=== PATIENT | female | born 1950 | race Caucasian/White ===

== ENCOUNTER 2023-04-13 17:22 | Inpatient (IN) ==
[2023-04-13] MEDS ORDERED: ONDANSETRON INJ 2 MG/ML 2 ML VIAL IV STA (17:33)
[2023-04-13] MEDS ORDERED: KETOROLAC TROMETHAMINE 15 MG/ML VIAL IV STA (17:33)
[2023-04-13] MEDS ORDERED: SODIUM CHLORIDE 0.9% 1000ML 1,000 ML IV ONE (17:33)
[2023-04-13 17:59] LABS: Basophils # (auto) 0.02 K/uL (0-0.2); Basophils % (auto) 0.3 %; Eosinophils # (auto) 0.12 K/uL (0-0.50); Eosinophils % (auto) 1.7 %; Hematocrit (blood only) 33.5 % (37.0-47.0); Hemoglobin 10.6 g/dl (12.0-16.0); Immature Granulocytes # (auto) 0.03 K/uL (0.01-0.20); Immature Granulocytes % (auto) 0.4 %; Lymphocytes # (auto) 1.46 K/uL (1.2-3.4); Lymphocytes % (auto) 20.4 %; Mean Corpuscular Hemoglobin 25.4 pg (25.0-34.0); Mean Corpuscular Hgb Conc 31.6 g/dL (32.0-36.0); Mean Corpuscular Volume 80.1 fL (80.0-100.0); Mean Platelet Volume 10.3 fL (9.4-12.4); Monocytes # (auto) 0.54 K/uL (0.11-0.59); Monocytes % (auto) 7.6 %; Neutrophils # (auto) 4.97 K/uL (1.40-6.50); Neutrophils % (auto) 69.6 %; Platelet Count 294 K/uL (130-400); RDW Coefficient of Variation 16.1 % (11.5-14.5); RDW Standard Deviation 46.7 fL (36.4-46.3); Red Blood Count 4.18 M/uL (4.20-5.40); White Blood Count 7.14 K/ul (4.8-10.8)
[2023-04-13] MEDS ORDERED: MoRPHine SULFATE 4 MG/ML 1 ML CARP\\VIAL IV STA (18:02)
--- NOTE | 2023-04-13 18:07 | Emergency Department Note ---
History of Present Illness General Chief Complaint: Abdominal Pain Stated Complaint: ABDOMINAL PAIN, POSSIBLE KIDNEY STONE Time Seen by Provider: 04/13/23 17:33 Source: patient and family (Family member is translating at bedside) History of Present Illness Provider Complaint: abdominal pain and flank pain Onset (ago): 1 day(s) Pain Consistency: constant Location: R flank Migration to: RLQ Severity: severe Maximum Pain Intensity: 10 Current Pain Intensity: 9 Quality: + stabbing and + sharp Relieved By: + nothing Exacerbated By: + nothing Context: + history of similar episodes (Feels like previous kidney stones); no foreign travel, no possible food poisoning, no sick contacts, no recent antibiotic use, no recent surgery/procedure or no recent injury Associated Symptoms: + nausea and + vomiting; no fever, no chills, no constipation, no dysuria, no hematemesis, no hematochezia, no melena, no hematuria, no chest pain and no breathing difficulty Related Data Patient Confirmed : No Home Medications Medication Instructions Recorded Confirmed Type ibuprofen 200 mg tablet 200 mg PO Q6H PRN Pain 04/13/23 04/13/23 History magnesium oxide 250 mg PO DAILY 04/13/23 04/13/23 History msuxvypejrzv-fvhxfuot-aohcrw 1 tab PO DAILY 04/13/23 04/13/23 History tablet (Multivitamin 50 Plus tablet) Allergies Allergy/AdvReac Type Severity Reaction Status Date / Time No Known Allergies Allergy Unverified 04/13/23 18:18 Past Med/Surg History Medical History Kidney stones Social History Smoking Status: Never smoker Second Hand Exposure: No; Do You Dip or Chew Tobacco: No; Hx Alcohol Use: No Hx Substance Use: No Preferred Language: Tajik 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 Beliefs That Will Affect Care: None Current Living Situation: Family Current Living Situation Comment: with daughter Other Information That Helps Us Care for You: No Feels Safe at Home: Yes Safety Concerns: Feels Safe At This Time Assistive Devices: Glasses Physical Exam Vital Signs: Vital Signs - 24 hr 04/13/23 17:25 04/13/23 18:00 04/13/23 18:00 Temperature 36.8 C Temperature Source Temporal Artery Sc an Pulse Rate 99 H Pulse Rate [Apical ] 115 H Respiratory Rate 18 20 Respiratory Effort / Characteristics Non-Labored Respiratory Depth Normal Blood Pressure 171/78 H Blood Pressure [Ri ght Arm] 169/99 H Blood Pressure Reshma n 109 Blood Pressure Reshma n [Right Arm] 122 Pulse Oximetry 99 99 99 Oxygen Delivery Me thod Room Air Room Air Room Air Sepsis Recent Feve r Within 48 Hours No Sepsis New/Unexpla ined Change in Men denia Status No Sepsis Action Take n by Nursing No Action Required 04/13/23 18:08 Temperature Temperature Source Pulse Rate 119 H Pulse Rate [Apical ] Respiratory Rate Respiratory Effort / Characteristics Respiratory Depth Blood Pressure Blood Pressure [Ri ght Arm] Blood Pressure Reshma n Blood Pressure Reshma n [Right Arm] Pulse Oximetry Oxygen Delivery Me thod Sepsis Recent Feve r Within 48 Hours Sepsis New/Unexpla ined Change in Men denia Status Sepsis Action Take n by Nursing Physical Exam: Physical Exam HENT: Exam performed. -Head: Normocephalic and atraumatic. -Right Ear: External ear normal. No mastoid erythema -Left Ear: External ear normal. No mastoid erythema EYES: Conjunctivae and EOM are normal. Right eye exhibits no discharge. Left eye exhibits no discharge. No scleral icterus. NECK: Normal range of motion. Neck supple. No JVD present. No tracheal deviation and normal range of motion present. CV: Normal rate, regular rhythm, normal heart sounds and intact distal pulses. There is no peripheral edema. Palpable radial pulses bue. PULM/CHEST: Effort normal and breath sounds normal. No respiratory distress. No stridor. She has no wheezes. She has no rales. ABD: The abdomen is soft. Bowel sounds are normal. She has no distension. There is no tenderness. There is no rebound, no guarding. MUSC/SKEL: Normal range of motion. There is no peripheral edema, tenderness or deformity. LYMPH: No cervical adenopathy. NEURO: She is alert and oriented to person, place, and time. She has normal strength. No cranial nerve deficit or sensory deficit. Coordination and gait normal. GCS eye subscore is 4. GCS verbal subscore is 5. GCS motor subscore is 6. Cerebellar tests wnl. SKIN: Skin is warm and dry. She is not diaphoretic. PSYCH: She has a normal mood and affect. Behavior is normal. Judgment and thought content normal. Course Course 1733: The patient was evaluated in room C12. A complete history and physical exam was performed Cardiac monitoring: An order was placed for continuous cardiac monitoring. The monitor shows a rate of 100 with sinus rhythm interpreted by 1917: Vital signs stable. Labs within normal limits. Imaging shows a 7 mm stone with hydronephrosis. Patient still having good deal of pain and does not feel comfortable being discharged home. Patient will be admitted to the [facility] team for evaluation by urology and pain control. Dr. Manzo's team notified. Administered Medications Lactated Ringer's (Lr) 1,000 mls @ 50 mls/hr IV .Q20H ONE Stop: 04/14/23 16:46 Last Admin: 04/13/23 21:13 Dose: 50 mls/hr Documented By: JUAN Morphine Sulfate (Morphine Sulfate 2 Mg/Ml Carp) 2 mg IV Q3H PRN PRN Reason: Pain Stop: 04/27/23 20:44 Last Admin: 04/13/23 23:04 Dose: 2 mg Documented By: YENI Discontinued Medications Sodium Chloride (Nss 1000ml) 1,000 mls @ 999 mls/hr IV .Q1H1M ONE Stop: 04/13/23 18:33 Last Infusion: 04/13/23 22:34 Dose: 0 mls/hr Documented By: Admin: 04/13/23 17:44 Dose: 999 mls/hr Documented By: CABRERA Pantoprazole Sodium 80 mg/ (Dextrose) 120 mls @ 480 mls/hr IV ONE STA Stop: 04/13/23 20:49 Last Admin: 04/13/23 22:35 Dose: Not Given Documented By: YENI Pantoprazole Sodium 80 mg/ (Dextrose) 120 mls @ 400 mls/hr IV NOW ONE Stop: 04/13/23 20:52 Last Admin: 04/13/23 22:35 Dose: Not Given Documented By: YENI Pantoprazole Sodium 80 mg/ (Dextrose) 120 mls @ 480 mls/hr IV ONE STA Stop: 04/13/23 20:55 Last Infusion: 04/13/23 22:34 Dose: 0 mls/hr Documented By: Admin: 04/13/23 21:13 Dose: 480 mls/hr Documented By: JUAN Ketorolac Tromethamine (Ketorolac Tromethamine 15 Mg/Ml Vial) 15 mg IV NOW STA Stop: 04/13/23 17:34 Last Admin: 04/13/23 17:43 Dose: 15 mg Documented By: CABRERA Metoprolol Tartrate (Metoprolol Tartrate 1 Mg/Ml Vial) 2.5 mg IV NOW STA Stop: 04/13/23 19:29 Last Admin: 04/13/23 22:33 Dose: Not Given Documented By: TNK Morphine Sulfate (Morphine Sulfate 4 Mg/Ml 1 Ml Carp\Vial) 4 mg IV NOW STA Stop: 04/13/23 18:03 Last Admin: 04/13/23 18:04 Dose: 4 mg Documented By: CABRERA Ondansetron HCl (Ondansetron Inj 2 Mg/Ml 2 Ml Vial) 4 mg IV NOW STA Stop: 04/13/23 17:34 Last Admin: 04/13/23 17:44 Dose: 4 mg Documented By: CABRERA Medical Decision Making Laboratory Data Attestation: I reviewed the patient's lab results. 04/13/23 17:45 04/13/23 17:45 Lab Results 04/13/23 04/13/23 04/13/23 Range/Units 17:45 17:45 18:31 WBC 7.14 (4.8-10.8) K/ul RBC 4.18 L (4.20-5.40) M/uL Hgb 10.6 L (12.0-16.0) g/dl Hct 33.5 L (37.0-47.0) % MCV 80.1 (80.0-100.0) fL MCH 25.4 (25.0-34.0) pg MCHC 31.6 L (32.0-36.0) g/dL RDW Std Deviation 46.7 H (36.4-46.3) fL RDW Coeff of Brenna 16.1 H (11.5-14.5) % Plt Count 294 (130-400) K/uL MPV 10.3 (9.4-12.4) fL Immature Gran % (Auto) 0.4 % Neut % (Auto) 69.6 % Lymph % (Auto) 20.4 % [place] % (Auto) 7.6 % Eos % (Auto) 1.7 % Baso % (Auto) 0.3 % Neut # (Auto) 4.97 (1.40-6.50) K/uL Lymph # (Auto) 1.46 (1.2-3.4) K/uL [place] # (Auto) 0.54 (0.11-0.59) K/uL Eos # (Auto) 0.12 (0-0.50) K/uL Baso # (Auto) 0.02 (0-0.2) K/uL Immature Gran # (Auto) 0.03 (0.01-0.20) K/uL Sodium 139 (136-145) mmol/L Potassium 3.9 (3.5-5.1) mmol/L Chloride 106 (98-107) mmol/L Carbon Dioxide 27 (21-32) mmol/L Anion Gap 6 (3-11) BUN 29 H (6-23) mg/dl Creatinine 0.81 (0.6-1.2) mg/dl Est Cr Clr Drug Dosing Not Reportable Est GFR ( Amer) 83.5 ml/min Est GFR (Non-Af Amer) 72.1 ml/min BUN/Creatinine Ratio 35.8 H (10-20) Glucose 112 H (70-99(Fasting)) mg/dl Calcium 8.9 (8.6-10.3) mg/dl Magnesium 2.2 (1.7-2.4) mg/dl Total Bilirubin 0.2 (0.2-1.0) mg/dl Direct Bilirubin 0.0 (0-0.2) mg/dl AST 22 (13-39) U/L ALT 17 (7-52) U/L Alkaline Phosphatase 83 (34-104) U/L Total Protein 6.7 (6.0-8.3) gm/dl Albumin 4.1 (3.4-5.0) gm/dl Lipase 60 (11-82) U/L Urine Color Yellow Urine Appearance Clear (Clear) Urine pH 8.0 H (4.5-7.5) Ur Specific Jbphh 1.011 (1.000-1.030) Urine Protein Negative (Negative) Urine Glucose (UA) Negative (Negative) Urine Ketones Negative (Negative) Urine Blood 2+ H (Negative) Urine Nitrite Negative (Negative) Urine Bilirubin Negative (Negative) Urine Urobilinogen Negative (Negative) Ur Leukocyte Esterase Trace H (Negative) Urine WBC (Auto) 1-5 (0-5) /hpf Urine RBC (Auto) 10-30 H (0-4) /hpf U Hyaline Cast (Auto) 0 (0-5) /lpf U Epithel Cells (Auto) 10-20 H (0-5) /lpf Urine Bacteria (Auto) Negative (Negative) SARS-CoV-2, RNA, NAAT (NEGATIVE) 04/13/23 Range/Units 19:34 WBC (4.8-10.8) K/ul RBC (4.20-5.40) M/uL Hgb (12.0-16.0) g/dl Hct (37.0-47.0) % MCV (80.0-100.0) fL MCH (25.0-34.0) pg MCHC (32.0-36.0) g/dL RDW Std Deviation (36.4-46.3) fL RDW Coeff of Brenna (11.5-14.5) % Plt Count (130-400) K/uL MPV (9.4-12.4) fL Immature Gran % (Auto) % Neut % (Auto) % Lymph % (Auto) % [place] % (Auto) % Eos % (Auto) % Baso % (Auto) % Neut # (Auto) (1.40-6.50) K/uL Lymph # (Auto) (1.2-3.4) K/uL [place] # (Auto) (0.11-0.59) K/uL Eos # (Auto) (0-0.50) K/uL Baso # (Auto) (0-0.2) K/uL Immature Gran # (Auto) (0.01-0.20) K/uL Sodium (136-145) mmol/L Potassium (3.5-5.1) mmol/L Chloride (98-107) mmol/L Carbon Dioxide (21-32) mmol/L Anion Gap (3-11) BUN (6-23) mg/dl Creatinine (0.6-1.2) mg/dl Est Cr Clr Drug Dosing Est GFR ( Amer) ml/min Est GFR (Non-Af Amer) ml/min BUN/Creatinine Ratio (10-20) Glucose (70-99(Fasting)) mg/dl Calcium (8.6-10.3) mg/dl Magnesium (1.7-2.4) mg/dl Total Bilirubin (0.2-1.0) mg/dl Direct Bilirubin (0-0.2) mg/dl AST (13-39) U/L ALT (7-52) U/L Alkaline Phosphatase (34-104) U/L Total Protein (6.0-8.3) gm/dl Albumin (3.4-5.0) gm/dl Lipase (11-82) U/L Urine Color Urine Appearance (Clear) Urine pH (4.5-7.5) Ur Specific Jbphh (1.000-1.030) Urine Protein (Negative) Urine Glucose (UA) (Negative) Urine Ketones (Negative) Urine Blood (Negative) Urine Nitrite (Negative) Urine Bilirubin (Negative) Urine Urobilinogen (Negative) Ur Leukocyte Esterase (Negative) Urine WBC (Auto) (0-5) /hpf Urine RBC (Auto) (0-4) /hpf U Hyaline Cast (Auto) (0-5) /lpf U Epithel Cells (Auto) (0-5) /lpf Urine Bacteria (Auto) (Negative) SARS-CoV-2, RNA, NAAT NEGATIVE (NEGATIVE) Imaging Data Radiologist's Impression: Abdomen/Pelvis CT 04/13/23 17:42 CT abd pelvis wo con CLINICAL HISTORY: R flank RLQ pain hx kidney stones TECHNIQUE: Helical axial images of the abdomen and pelvis were obtained. Automated dose lowering techniques and/or adjustment according to patient size were utilized for this exam. This exam was performed without intravenous con trast. CT DOSE: 749.08 mGy.cm COMPARISON: None available at the time of this dictation. FINDINGS: Lower chest: Bibasilar atelectasis versus scarring is seen. Liver: Unremarkable. No focal lesions are seen. Gallbladder and biliary tree: Patient is status post cholecystectomy. No intra- or extrahepatic biliary ductal dilation. Pancreas: Unremarkable, no focal lesions. Spleen: Unremarkable. Adrenals: Unremarkable. Kidneys and ureters: Right hydronephrosis and hydroureter is seen. A 7 mm right UVJ stone is seen. Bladder: Unremarkable. Reproductive organs: Unremarkable. Bowel: Diverticulosis is seen without evidence of diverticulitis. Lymph nodes Retroperitoneal: Unremarkable. Pelvic: Unremarkable. Mesenteric: Unremarkable. Peritoneum: Normal. Vessels: Atherosclerotic calcifications are seen. Phleboliths are seen in the pelvis. Abdominal wall: Unremarkable. Bones: Degenerative changes in the visualized spine. IMPRESSION: Right hydronephrosis and hydroureter are seen with a obstructive 7 mm right UVJ stone. ACT 112: Negative or not required by law. Electronically signed by: Antonio Anglin M.D. 04/13/2023 6:28 PM Chest X-Ray 04/13/23 19:24 XR chest 1V portable CLINICAL HISTORY: htn, tachy TECHNIQUE: Single frontal radiograph of the chest was obtained. Comparison: None available at the time of this dictation. FINDINGS: No lines and tubes are seen. The cardiomediastinal silhouette is normal. The lungs are clear. No evidence of pleural effusion or pneumothorax. IMPRESSION: No acute chest disease. ACT 112: Negative or not required by law. Electronically signed by: Antonio Anglin M.D. 04/13/2023 8:39 PM [facility] Narrative 1733: The patient was evaluated in room C12. A complete history and physical exam was performed Cardiac monitoring: An order was placed for continuous cardiac monitoring. The monitor shows a rate of 100 with sinus rhythm interpreted by me 1917: Vital signs stable. Labs within normal limits. Imaging shows a 7 mm stone with hydronephrosis. Patient still having good deal of pain and does not feel comfortable being discharged home. Patient will be admitted to the [facility] team for evaluation by urology and pain control. Dr. Manzo's team notified. Impression & Plan Hydronephrosis with urinary obstruction due to renal calculus Discharge Plan Visit Data Chief Complaint: Abdominal Pain Stated Complaint: ABDOMINAL PAIN, POSSIBLE KIDNEY STONE ED Provider: Stiven Collins Discharge Problem: Hydronephrosis with urinary obstruction due to renal calculus Patient Disposition: Admitted As Inpatient Discharge Instructions Interventions: ED Discharge Assessment Last Done: 04/13/23 21:55
[2023-04-13 18:15] LABS: Alanine Aminotransferase 17 U/L (7-52); Albumin Level 4.1 gm/dl (3.4-5.0); Alkaline Phosphatase 83 U/L (34-104); Anion Gap 6 (3-11); Aspartate Aminotransferase 22 U/L (13-39); BUN Creatinine Ratio 35.8 (10-20); Bilirubin,Total 0.2 mg/dl (0.2-1.0); Blood Urea Nitrogen 29 mg/dl (6-23); Calcium 8.9 mg/dl (8.6-10.3); Carbon Dioxide 27 mmol/L (21-32); Chloride 106 mmol/L (98-107); Est GFR (African American) 83.5 ml/min; Est GFR (Non-African American) 72.1 ml/min; Glucose 112 mg/dl (70-99(Fasting)); Lipase 60 U/L (11-82); Potassium 3.9 mmol/L (3.5-5.1); Sodium 139 mmol/L (136-145); Total Protein 6.7 gm/dl (6.0-8.3)
--- NOTE | 2023-04-13 18:29 | CT Scan Report ---
CT abd pelvis wo con CLINICAL HISTORY: R flank RLQ pain hx kidney stones TECHNIQUE: Helical axial images of the abdomen and pelvis were obtained. Automated dose lowering tech niques and/or adjustment according to patient size were utilized for this exam. This exam was perfor med without intravenous contrast. CT DOSE: 749.08 mGy.cm COMPARISON: None available at the time of this dictation. FINDINGS: Lower chest: Bibasilar atelectasis versus scarring is seen. Liver: Unremarkable. No focal lesions are seen. Gallbladder and biliary tree: Patient is status post cholecystectomy. No intra- or extrahepatic bilia ry ductal dilation. Pancreas: Unremarkable, no focal lesions. Spleen: Unremarkable. Adrenals: Unremarkable. Kidneys and ureters: Right hydronephrosis and hydroureter is seen. A 7 mm right UVJ stone is seen. Bladder: Unremarkable. Reproductive organs: Unremarkable. Bowel: Diverticulosis is seen without evidence of diverticulitis. Lymph nodes Retroperitoneal: Unremarkable. Pelvic: Unremarkable. Mesenteric: Unremarkable. Peritoneum: Normal. Vessels: Atherosclerotic calcifications are seen. Phleboliths are seen in the pelvis. Abdominal wall: Unremarkable. Bones: Degenerative changes in the visualized spine. IMPRESSION: Right hydronephrosis and hydroureter are seen with a obstructive 7 mm right UVJ stone. ACT 112: Negative or not required by law. Electronically signed by: Antonio Anglin M.D. 04/13/2023 6:28 PM
[2023-04-13 18:49] LABS: Appearance Urine Clear (Clear); Bacteria Urine Automated Negative (Negative); Bilirubin Urine Negative (Negative); Blood Urine 2+ (Negative); Cast Urine Automated 0 /lpf (0-5); Color Urine Yellow; Glucose Urine UA Negative (Negative); Ketones Urine Negative (Negative); Leukocyte Esterase Urine Trace (Negative); Nitrite Urine Negative (Negative); Protein Urine Negative (Negative); Specific Gravity Urine 1.011 (1.000-1.030); Urobilinogen Urine Negative (Negative)
[2023-04-13] MEDS ORDERED: METOPROLOL TARTRATE 1 MG/ML VIAL IV STA (19:28)
[2023-04-13 19:44] LABS: Magnesium 2.2 mg/dl (1.7-2.4)
[2023-04-13] MEDS ORDERED: PANTOprazole 80 MG in DEXTROSE 5% 100 ML IV STA ×2 (20:35→20:41)
[2023-04-13] MEDS ORDERED: PANTOprazole 80 MG in DEXTROSE 5% 100 ML IV ONE (20:35)
--- NOTE | 2023-04-13 20:38 | History & Physical Report ---
Date of Service April 13, 2023 Assessment & Plan (1) Hydronephrosis with urinary obstruction due to renal calculus: Plan: No sepsis for now Situational hypertension secondary to above Possible chronic BP elevation given LVH on EKG New onset anemia secondary to UGIB Hyperglycemia rule out DM Medical telemetry given BP elevation initiate lisinopril Analgesia Strain urine Urology consult Re: Obstructive uropathy Anemia work-up, transfuse PRBC if hemoglobin less than 7 and or for symptomatic anemia IV PPI GI consult Re: UGIB N.p.o. until patient seen by specialties in anticipation of procedure. DVT prophylaxis. SCDs Re: GI bleed Full code Patient daughter requesting updates providers. Miss Geni Oro, contact #[phone]. Text document was generated using [employer] voice recognition software. It may contain grammatical or spelling errors. Kindly contact undersigned for clarification of any documentation item in question. History of Present Illness Chief Complaint: Kidney stone pain Primary Care Provider: NO PCP History obtained from patient, family, and records. Limited history from patient secondary to language barrier. Medical history significant for urolithiasis. Patient is a andreafski of [facility] who just relocated to [place] as a permanent resident to stay with her daughter 2 months ago. Move delayed by COVID-19 pandemic. 1 day history of right-sided back pain with nausea, emesis symptoms reminiscent of kidney stone attack. No hematuria, no fever, no chills. Patient denies chest pain, SOB. Patient also gives history of intermittent dark stools for the last few weeks. Denies inordinate OTC NSAID intake. Denies weight loss. Patient brought to the ER by daughter. Medical History as above Surgical History : Nasal septum surgery, urologic procedures, cholecystectomy, appendectomy Family History : Kidney stones, stomach cancer Personal/Social history : Non-smoker, no EtOH intake, lives with daughter Allergies Allergy/AdvReac Type Severity Reaction Status Date / Time No Known Allergies Allergy Unverified 04/13/23 18:18 Home Medications Medication Instructions Recorded Confirmed Type ibuprofen 200 mg tablet 200 mg PO Q6H PRN Pain 04/13/23 04/13/23 History magnesium oxide 250 mg PO DAILY 04/13/23 04/13/23 History dsnhcdhhdrbm-jjvdcomt-[id number] 1 tab PO DAILY 04/13/23 04/13/23 History tablet (Multivitamin 50 Plus tablet) Past Med/Surg History Medical History Kidney stones Social History Smoking Status: Never smoker Second Hand Exposure: No; Do You Dip or Chew Tobacco: No; Hx Alcohol Use: No Hx Substance Use: No Preferred Language: Czech Communication Ability: emirati Communication Tools: Other Advertising Traffic Manager Required: Yes Beliefs That Will Affect Care: None Current Living Situation: Family Current Living Situation Comment: with daughter Other Information That Helps Us Care for You: No Feels Safe at Home: Yes Safety Concerns: Feels Safe At This Time Assistive Devices: Glasses Review of Systems Review of Systems: Could not be reliably obtained due to language barrier Physical Exam Physical Exam: GENERAL: Comfortable, pleasant, no respiratory distress SKIN: Pallor, warm HEENT: Pale palpebral conjunctivae, no ptosis, dry buccal mucosa NECK : Supple, no tenderness CHEST : CTA, no tenderness HEART : RRR, no obvious murmurs ABDOMEN: Some distention, nontender RECTAL : Intact sphincter, dark brown stool (FOBT positive) EXTREMITIES : No LE swelling/tenderness, no other conspicuous deformities noted NEUROLOGIC : Coherent, no facial asymmetry, no other gross focality Results & Data Results & Data Vital Signs (Past 12 Hours) Vital Signs Temp Pulse Pulse Resp BP BP Pulse Ox 04/13/23 18:08 119 H 04/13/23 18:00 115 H 20 169/99 H 99 04/13/23 18:00 99 04/13/23 17:25 36.8 C 99 H 18 171/78 H 99 O2 Del Method 04/13/23 18:08 04/13/23 18:00 Room Air 04/13/23 18:00 Room Air 04/13/23 17:25 Room Air Laboratory Results Laboratory Results WBC 7.14 K/ul (4.8-10.8) 04/13/23 17:45 RBC 4.18 M/uL (4.20-5.40) L 04/13/23 17:45 Hgb 10.6 g/dl (12.0-16.0) L 04/13/23 17:45 Hct 33.5 % (37.0-47.0) L 04/13/23 17:45 MCV 80.1 fL (80.0-100.0) 04/13/23 17:45 MCH 25.4 pg (25.0-34.0) 04/13/23 17:45 MCHC 31.6 g/dL (32.0-36.0) L 04/13/23 17:45 RDW Std Deviation 46.7 fL (36.4-46.3) H 04/13/23 17:45 RDW Coeff of Brenna 16.1 % (11.5-14.5) H 04/13/23 17:45 Plt Count 294 K/uL (130-400) 04/13/23 17:45 MPV 10.3 fL (9.4-12.4) 04/13/23 17:45 Immature Gran % (Auto) 0.4 % 04/13/23 17:45 Neut % (Auto) 69.6 % 04/13/23 17:45 Lymph % (Auto) 20.4 % 04/13/23 17:45 [place] % (Auto) 7.6 % 04/13/23 17:45 Eos % (Auto) 1.7 % 04/13/23 17:45 Baso % (Auto) 0.3 % 04/13/23 17:45 Neut # (Auto) 4.97 K/uL (1.40-6.50) 04/13/23 17:45 Lymph # (Auto) 1.46 K/uL (1.2-3.4) 04/13/23 17:45 [place] # (Auto) 0.54 K/uL (0.11-0.59) 04/13/23 17:45 Eos # (Auto) 0.12 K/uL (0-0.50) 04/13/23 17:45 Baso # (Auto) 0.02 K/uL (0-0.2) 04/13/23 17:45 Immature Gran # (Auto) 0.03 K/uL (0.01-0.20) 04/13/23 17:45 Sodium 139 mmol/L (136-145) 04/13/23 17:45 Potassium 3.9 mmol/L (3.5-5.1) 04/13/23 17:45 Chloride 106 mmol/L (98-107) 04/13/23 17:45 Carbon Dioxide 27 mmol/L (21-32) 04/13/23 17:45 Anion Gap 6 (3-11) 04/13/23 17:45 BUN 29 mg/dl (6-23) H 04/13/23 17:45 Creatinine 0.81 mg/dl (0.6-1.2) 04/13/23 17:45 Est Cr Clr Drug Dosing Not Reportable 04/13/23 17:45 Est GFR ( Amer) 83.5 ml/min 04/13/23 17:45 Est GFR (Non-Af Amer) 72.1 ml/min 04/13/23 17:45 BUN/Creatinine Ratio 35.8 (10-20) H 04/13/23 17:45 Glucose 112 mg/dl (70-99(Fasting)) H 04/13/23 17:45 Calcium 8.9 mg/dl (8.6-10.3) 04/13/23 17:45 Magnesium 2.2 mg/dl (1.7-2.4) 04/13/23 17:45 Total Bilirubin 0.2 mg/dl (0.2-1.0) 04/13/23 17:45 Direct Bilirubin 0.0 mg/dl (0-0.2) 04/13/23 17:45 AST 22 U/L (13-39) 04/13/23 17:45 ALT 17 U/L (7-52) 04/13/23 17:45 Alkaline Phosphatase 83 U/L (34-104) 04/13/23 17:45 Total Protein 6.7 gm/dl (6.0-8.3) 04/13/23 17:45 Albumin 4.1 gm/dl (3.4-5.0) 04/13/23 17:45 Lipase 60 U/L (11-82) 04/13/23 17:45 Urine Color Yellow 04/13/23 18:31 Urine Appearance Clear (Clear) 04/13/23 18:31 Urine pH 8.0 (4.5-7.5) H 04/13/23 18:31 Ur Specific [place] 1.011 (1.000-1.030) 04/13/23 18:31 Urine Protein Negative (Negative) 04/13/23 18:31 Urine Glucose (UA) Negative (Negative) 04/13/23 18:31 Urine Ketones Negative (Negative) 04/13/23 18:31 Urine Blood 2+ (Negative) H 04/13/23 18:31 Urine Nitrite Negative (Negative) 04/13/23 18:31 Urine Bilirubin Negative (Negative) 04/13/23 18:31 Urine Urobilinogen Negative (Negative) 04/13/23 18:31 Ur Leukocyte Esterase Trace (Negative) H 04/13/23 18:31 Urine WBC (Auto) 1-5 /hpf (0-5) 04/13/23 18:31 Urine RBC (Auto) 10-30 /hpf (0-4) H 04/13/23 18:31 U Hyaline Cast (Auto) 0 /lpf (0-5) 04/13/23 18:31 U Epithel Cells (Auto) 10-20 /lpf (0-5) H 04/13/23 18:31 Urine Bacteria (Auto) Negative (Negative) 04/13/23 18:31 SARS-CoV-2, RNA, NAAT NEGATIVE (NEGATIVE) 04/13/23 19:34 Impressions Abdomen/Pelvis CT 04/13/23 17:42 CT abd pelvis wo con CLINICAL HISTORY: R flank RLQ pain hx kidney stones TECHNIQUE: Helical axial images of the abdomen and pelvis were obtained. Automated dose lowering techniques and/or adjustment according to patient size were utilized for this exam. This exam was performed without intravenous contrast. CT DOSE: 749.08 mGy.cm COMPARISON: None available at the time of this dictation. FINDINGS: Lower chest: Bibasilar atelectasis versus scarring is seen. Liver: Unremarkable. No focal lesions are seen. Gallbladder and biliary tree: Patient is status post cholecystectomy. No intra- or extrahepatic biliary ductal dilation. Pancreas: Unremarkable, no focal lesions. Spleen: Unremarkable. Adrenals: Unremarkable. Kidneys and ureters: Right hydronephrosis and hydroureter is seen. A 7 mm right UVJ stone is seen. Bladder: Unremarkable. Reproductive organs: Unremarkable. Bowel: Diverticulosis is seen without evidence of diverticulitis. Lymph nodes Retroperitoneal: Unremarkable. Pelvic: Unremarkable. Mesenteric: Unremarkable. Peritoneum: Normal. Vessels: Atherosclerotic calcifications are seen. Phleboliths are seen in the pelvis. Abdominal wall: Unremarkable. Bones: Degenerative changes in the visualized spine. IMPRESSION: Right hydronephrosis and hydroureter are seen with a obstructive 7 mm right UVJ stone. ACT 112: Negative or not required by law. Electronically signed by: Antonio Anglin M.D. 04/13/2023 6:28 PM Diagnostic Findings EKG as per my interpretation : Rate 90, NSR, LAD, LAFB, LVH, T wave abnormalities inferior leads
--- NOTE | 2023-04-13 20:40 | XRay Report ---
XR chest 1V portable CLINICAL HISTORY: htn, tachy TECHNIQUE: Single frontal radiograph of the chest was obtained. Comparison: None available at the time of this dictation. FINDINGS: No lines and tubes are seen. The cardiomediastinal silhouette is normal. The lungs are clear. No evid ence of pleural effusion or pneumothorax. IMPRESSION: No acute chest disease. ACT 112: Negative or not required by law. Electronically signed by: Antonio Anglin M.D. 04/13/2023 8:39 PM
[2023-04-13] MEDS ORDERED: ACETAMINOPHEN 325 MG TAB PO PRN (20:45)
[2023-04-13] MEDS ORDERED: traMADol HCL 50 MG TABLET PO PRN (20:45)
[2023-04-13] MEDS ORDERED: PROMETHAZINE HCL 6.25 MG in SODIUM CHLORIDE 0.9% 50 ML IV PRN (20:45)
[2023-04-13] MEDS ORDERED: LACTATED RINGER'S 1,000 ML IV ONE (20:47)
[2023-04-13] MEDS ORDERED: PANTOprazole 40 MG in DEXTROSE 5% 100 ML IV SCH (21:00)
[2023-04-13 21:58] LABS: Hematocrit (blood only) 32.9 % (37.0-47.0); Hemoglobin 10.4 g/dl (12.0-16.0); Reticulocyte % 1.7 % (0.5-2.0); Reticulocytes # 0.07 10^6/uL (0.02-0.10)
[2023-04-13 22:31] LABS: Ferritin 5.1 ng/ml (8-388)
[2023-04-13] MEDS: lisinopril 2.5 MG TAB PO SCH (22:33)
[2023-04-13 22:38] LABS: Vitamin B12 529 pg/ml (180-914)
[2023-04-13] MEDS: MoRPHine SULFATE 2 MG/ML CARP IV PRN (23:04)
[2023-04-14] MEDS: lisinopril 2.5 MG TAB PO SCH ×2 (00:08→21:01)
[2023-04-14 07:16] LABS: Basophils # (auto) 0.02 K/uL (0-0.2); Basophils % (auto) 0.3 %; Eosinophils # (auto) 0.02 K/uL (0-0.50); Eosinophils % (auto) 0.3 %; Hematocrit (blood only) 32.3 % (37.0-47.0); Hemoglobin 10.1 g/dl (12.0-16.0); Immature Granulocytes # (auto) 0.02 K/uL (0.01-0.20); Immature Granulocytes % (auto) 0.3 %; Lymphocytes # (auto) 1.35 K/uL (1.2-3.4); Lymphocytes % (auto) 18.3 %; Mean Corpuscular Hemoglobin 25.1 pg (25.0-34.0); Mean Corpuscular Hgb Conc 31.3 g/dL (32.0-36.0); Mean Corpuscular Volume 80.1 fL (80.0-100.0); Mean Platelet Volume 10.4 fL (9.4-12.4); Monocytes # (auto) 0.61 K/uL (0.11-0.59); Monocytes % (auto) 8.3 %; Neutrophils # (auto) 5.34 K/uL (1.40-6.50); Neutrophils % (auto) 72.5 %; Platelet Count 276 K/uL (130-400); RDW Coefficient of Variation 16.2 % (11.5-14.5); RDW Standard Deviation 47.3 fL (36.4-46.3); Red Blood Count 4.03 M/uL (4.20-5.40); White Blood Count 7.36 K/ul (4.8-10.8)
[2023-04-14 07:29] LABS: BUN Creatinine Ratio 28.2 (10-20); Calcium 8.7 mg/dl (8.6-10.3); Creatinine Clr Calc Pharmacy 61.6 ml/min; Est GFR (African American) 87.4 ml/min; Est GFR (Non-African American) 75.4 ml/min; Potassium 4.1 mmol/L (3.5-5.1)
[2023-04-14] MEDS: CEROVITE ADV FORMULA TAB PO SCH (08:38)
[2023-04-14] MEDS: PANTOprazole 40 MG in SYRINGE 0 ML IV SCH ×2 (08:41→21:02)
--- NOTE | 2023-04-14 11:02 | Urology Consultation ---
Date of Consultation April 14, 2023 Assessment & Plan (1) Hydronephrosis with urinary obstruction due to renal calculus: (2) Kidney stones: Plan We reviewed the ureteral stone seen on her CT scan. In the absence of infection or renal deterioration, which 1 option would be for her to try to pass the stone spontaneously. We discussed that this would include using medications for pain and nausea control. We also discussed the possibility of intervention with cystoscopy, ureteral stent placement and possible laser lithotripsy. We reviewed risks and benefits of the procedure including risk of bleeding, infection, injury to the urinary tract, need for additional procedures, need for ureteral stent. She expressed understanding and after consideration of the options would like to proceed with intervention. We will plan for cystoscopy, right retrograde pyelogram, right ureteral stent placement, possible right ureteroscopy with laser lithotripsy. History of Present Illness Reason for Consultation: Right ureteral stone Attending Physician: Dio Adler MD History of Present Illness This is a 72-year-old female with history of nephrolithiasis. She presented the emergency department with acute onset of right-sided flank pain associated with nausea. She is not having any fevers or chills. CT scan was performed in the emergency department. I Independently reviewed these images. They demonstrated a 7 mm stone at the right ureterovesical junction with associated hydronephrosis.Lab work was notable for normal WBC (7.36). Creatinine was 0.78. Urinalysis was not suggestive of infection, demonstrating no bacteria, trace leukocyte esterase and negative nitrites. Allergies Allergy/AdvReac Type Severity Reaction Status Date / Time No Known Allergies Allergy Unverified 04/13/23 18:18 Home Medications Medication Instructions Recorded Confirmed Type ibuprofen 200 mg tablet 200 mg PO Q6H PRN Pain 04/13/23 04/13/23 History magnesium oxide 250 mg PO DAILY 04/13/23 04/13/23 History jxglbzjsfpde-odhloyjt-rvpznf 1 tab PO DAILY 04/13/23 04/13/23 History tablet (Multivitamin 50 Plus tablet) Patient History Medical History Kidney stones Social History Smoking Status: Never smoker Second Hand Exposure: No; Do You Dip or Chew Tobacco: No; Hx Alcohol Use: No Hx Substance Use: No Preferred Language: Greek Communication Ability: upper sorbian Communication Tools: Other Dispatcher Refinery Required: Yes Beliefs That Will Affect Care: None Current Living Situation: Family Current Living Situation Comment: with daughter Other Information That Helps Us Care for You: No Feels Safe at Home: Yes Safety Concerns: Feels Safe At This Time Assistive Devices: Glasses Review of Systems Review of Systems: 12 point review of systems negative except for otherwise indicated. Physical Exam Constitutional: well developed and well nourished; no acute distress Eyes: + anicteric sclerae; pupils not irregular Respiratory: normal respiratory effort; no respiratory distress, does not use accessory muscles and no cough Cardiovascular: well perfused Gastrointestinal (Abdomen): Inspection/Auscultation: abdomen normal to inspection; abdomen not distended Musculoskeletal: Extremities: extremities normal to inspection Skin: normal turgor; no rashes and no lesions Neurologic: moves all extremities and awake Psychiatric: Orientation: alert and oriented x 3 Results & Data Vital Signs (Past 12 Hours) Vital Signs Temp Pulse Pulse Resp BP Pulse Ox O2 Del Method 04/14/23 07:59 74 04/14/23 07:02 36.8 C 73 18 121/68 97 Room Air 04/14/23 03:50 37 C 78 18 123/60 96 Room Air 04/14/23 00:46 Room Air PG Care Time/CCT Total # of Minutes Spent Total Time Spent with Patient: Total time spent is greater than 50% in coordination of care (as documented) at patient's floor/unit and/or counseling patient: Coding Level of Care Code 63318 IN/OBS CONSULT LVL 4,60M Diagnoses Hydronephrosis with urinary obstruction due to renal calculus N13.2 Kidney stones N20.0
[2023-04-14] MEDS ORDERED: ceFAZolin 2000MG 2,000 MG/15 ML SYR IV ONE (11:15)
[2023-04-14] MEDS ORDERED: fentaNYL citrate PF 100 MCG/2 ML VIAL ONE (11:20)
[2023-04-14] MEDS ORDERED: PROPOFOL IV EMULSION 10 MG/ML 20 ML VIAL IV ONE (11:21)
[2023-04-14] MEDS ORDERED: MIDAZOLAM HCL 1 MG/ML 2ML VIAL ONE (11:21)
[2023-04-14] MEDS ORDERED: LIDOCAINE 2% 2 ML VIAL/AMP(20MG/ML) INFIL ONE ×2 (11:22)
--- NOTE | 2023-04-14 11:44 | Anesthesiology Consultation ---
Date of Service April 14, 2023 Assessment & Plan Chart Review Chart Review: Acceptable Risk for Surgery and Patient NOT seen in Pre Admission Testing Consults Requested none ASA ASA3 Proposed Anesthesia Anesthesia Type: General History Surgery Operation Date: 04/14/23 12:00 Proposed Procedures p Cystoscopy, Ureteroscopy, Laser Lithotripsy, Right Ureteral Stent Placement(Ri t) - Zachery Reyes MD Height/Weight Height: 5 ft 4 in Weight: 69.7 kg Allergies Allergy/AdvReac Type Severity Reaction Status Date / Time No Known Allergies Allergy Unverified 04/13/23 18:18 Medications Home Medications Medication Instructions Recorded Confirmed Last Taken ibuprofen 200 mg tablet 200 mg PO Q6H PRN Pain 04/13/23 04/13/23 04/13/23 magnesium oxide 250 mg PO DAILY 04/13/23 04/13/23 04/12/23 [id number] 1 tab PO DAILY 04/13/23 04/13/23 04/12/23 tablet (Multivitamin 50 Plus tablet) Active Medications Generic Name Dose Route Start Last Admin Trade Name Freq PRN Reason Stop Dose Admin Pantoprazole Sodium 40 mg/ 10 mls @ 5 mls/min 04/14/23 09:00 04/14/23 08:41 Syringe IV 05/14/23 08:59 5 mls/min BID RENNY Administration Lisinopril 2.5 mg 04/13/23 21:00 04/14/23 00:08 Lisinopril 2.5 Mg Tab PO 05/13/23 20:59 Not Given HS RENNY Morphine Sulfate 2 mg 04/13/23 20:45 04/13/23 23:04 Morphine Sulfate 2 Mg/Ml Carp IV 04/27/23 20:44 2 mg Q3H PRN Administration Pain Multivitamins/Minerals 1 tab 04/14/23 09:00 04/14/23 08:38 Cerovite Adv Formula Tab PO 05/14/23 08:59 1 tab DAILY RENNY Administration Past Medical History Medical History Kidney stones HTN ASCVD AO right hydronephrosis right kidney stone Exercise / Class Metabolic Activity II 4-5 Yardwork/Stairs/Walk up hill Past Anesthesia History No Hx of Anesthesia Complications and No Family Hx of Anesthesia Complications History of PONV No Hx of PONV and No Hx of Motion Sickness Social History Smoking Status: Never smoker Do You Dip or Chew Tobacco: No Hx Alcohol Use: No Hx Substance Use: No substance use type: does not use Physical Exam Vital Signs Last Vital Signs Temp 36.9 C 04/14/23 10:59 Pulse 79 04/14/23 10:59 Resp 18 04/14/23 10:59 BP 158/71 H 04/14/23 10:59 Pulse Ox 98 04/14/23 10:59 O2 Del Method Room Air 04/14/23 10:59 Testing Laboratory Results 04/14/23 06:13 04/14/23 06:13 Urine Color Yellow 04/13/23 18:31 Urine Appearance Clear (Clear) 04/13/23 18:31 Urine pH 8.0 (4.5-7.5) H 04/13/23 18:31 Ur Specific [place] 1.011 (1.000-1.030) 04/13/23 18:31 Urine Protein Negative (Negative) 04/13/23 18:31 Urine Glucose (UA) Negative (Negative) 04/13/23 18:31 Urine Ketones Negative (Negative) 04/13/23 18:31 Urine Nitrite Negative (Negative) 04/13/23 18:31 Ur Leukocyte Esterase Trace (Negative) H 04/13/23 18:31 Urine WBC (Auto) 1-5 /hpf (0-5) 04/13/23 18:31 Urine RBC (Auto) 10-30 /hpf (0-4) H 04/13/23 18:31 U Hyaline Cast (Auto) 0 /lpf (0-5) 04/13/23 18:31 U Epithel Cells (Auto) 10-20 /lpf (0-5) H 04/13/23 18:31 Urine Bacteria (Auto) Negative (Negative) 04/13/23 18:31 Blood Type O Positive 04/13/23 21:43 Antibody Screen NEGATIVE 04/13/23 21:43 Electrocardiogram Date: 04/13/23 Findings: + NSR @ (@ 87 w/ sinus arrhythmia and occas. PVC's; ? old anter. infarct, age ?) Chest X-Ray Date: 04/13/23 Findings: + NAD
[2023-04-14] MEDS ORDERED: fentaNYL citrate PF 100 MCG/2 ML VIAL IV PRN (11:55)
[2023-04-14] MEDS ORDERED: PROMETHAZINE HCL 12.5 MG in SODIUM CHLORIDE 0.9% 50 ML IV PRN (11:55)
[2023-04-14] MEDS ORDERED: ePHEDrine sulfate 50 MG/ML AMP IV PRN (11:55)
[2023-04-14] MEDS ORDERED: FLUMAZENIL 0.1 MG/1 ML 10 ML VIAL IV PRN (11:55)
[2023-04-14] MEDS ORDERED: ATROPINE SULFATE 0.1 MG/ML 10ML SYR IV PRN (11:55)
[2023-04-14] MEDS ORDERED: LABETALOL HCL IV 5 MG/ML 20ML IV PRN (11:55)
[2023-04-14] MEDS ORDERED: ONDANSETRON INJ 2 MG/ML 2 ML VIAL IV PRN (11:55)
[2023-04-14] MEDS ORDERED: NALOXONE HCL 0.4 MG/1 ML VIAL/CARP IV PRN (11:55)
[2023-04-14] MEDS ORDERED: ceFAZolin 330 MG/ML 1 GM VIAL ONE ×2 (12:12)
[2023-04-14] MEDS ORDERED: DEXAMETHASONE SOD INJ 4 MG/ML VIAL ONE (12:15)
[2023-04-14] MEDS ORDERED: ONDANSETRON INJ 2 MG/ML 2 ML VIAL ONE (12:16)
[2023-04-14] MEDS ORDERED: DIATRIZOATE MEGLUMINE 30% 100ML VIAL INSTIL PRN (12:21)
--- NOTE | 2023-04-14 12:35 | Operative Report ---
PG Post Operative Report Pre & Post Diagnosis Operation Date: 04/14/23 12:00 Pre-Op Diagnosis: Right ureteral stone Post-Op Diagnosis: Right ureteral stone I identified the patient and participated in the time-out.: Yes Procedure Operation Date: 04/14/23 12:00 Actual Procedures p Cystoscopy, Ureteroscopy, Right Ureteral Stent Placement, Stone basket extraction of Stone(Right) - Zachery Reyes MD Surgeon Zachery Reyes MD Lace Sewer None Estimated Blood Loss 0 Findings See Below Stone visualized in the distal right ureter, grasped with a basket and removed. Successful right ureteral stent placement. Specimens Right ureteral stone Drains 6 [place] Citizen by 24 cm double-J ureteral stent in the right ureter Complications none Disposition Accompanied Patient To Recovery: Yes Disposition: Recovery Room Indications This is a 72-year-old female who presented to the emergency department with right-sided flank pain. CT scan identified a distal right ureteral stone. She presents to the OR today for right ureteral stent placement and possible stone removal due to ongoing stone pain. Description of Procedure The patient was identified in the holding area and informed consent was confirmed. She was marked on the right side, then was taken to the operating room where general anesthesia was initiated. She was placed in the dorsal lithotomy position with all pressure points appropriately padded. She was prepped and draped in the usual sterile fashion and a preoperative timeout was performed. A well-lubricated cystoscope was inserted per urethra and panendoscopy was performed. The urethra was normal with no strictures or mucosal abnormalities. Her bladder appeared grossly normal with no tumors or stones appreciated. Ureteral orifices were in orthotopic position bilaterally A 0.038 inch zip wire was advanced into the right ureter. There was some resistance to the distal ureter, likely related to the stone. The wire was able to bypass this and advanced up to the kidney under fluoroscopic guidance. Alongside the wire, and using a second zip wire to prop open the ureteral orifice, a semirigid ureteroscope was advanced. In the distal ureter the culprit stone was visualized. It had a somewhat long and narrow appearance. Nitinol wire basket was used to grasp and remove the stone atraumatically. The stone was sent for analysis labeled as right ureteral stone. The semirigid ureteroscope was then reinserted and used to survey the length of the ureter. No additional stones were identified. There was minimal trauma to the distal ureter where the stone had been in place. The cystoscope was reinserted over the wire, then a 6 [place] Citizen x 24 centimeter double-J ureteral stent was advanced. When the wire was removed, the proximal curl was visualized in the kidney with x-ray, and the distal curl visualized in the bladder with the cystoscope. At this point the bladder was drained and all instrumentation was removed. Strings were left attached to the stent to facilitate removal by the patient. The strings were secured to her right thigh using Mastisol and a Tegaderm. The patient was then awakened from anesthesia and was brought to the PACU in stable condition. I attest to the content of the Intraoperative Record and any orders documented therein. Any exceptions are noted below.
--- NOTE | 2023-04-14 13:03 | Anesthesiology Progress Note ---
Date of Service April 14, 2023 Anesthesia Post Procedure Vital Signs Vital Signs: Temp Pulse Pulse Resp BP BP BP 04/14/23 12:50 73 12 164/83 H 04/14/23 13:00 89 20 147/74 H 04/14/23 12:40 36.4 C L 79 14 150/68 H 04/14/23 10:59 36.9 C 79 18 158/71 H 04/14/23 07:59 74 04/14/23 07:02 36.8 C 73 18 121/68 04/14/23 03:50 37 C 78 18 123/60 04/13/23 22:45 77 04/14/23 00:46 04/13/23 22:02 36.8 C 90 18 145/72 H 04/13/23 22:46 36.8 C 90 18 145/72 H 04/13/23 21:36 83 16 178/79 H 04/13/23 18:08 119 H 04/13/23 18:00 115 H 20 169/99 H 04/13/23 18:00 04/13/23 17:25 36.8 C 99 H 18 171/78 H Pulse Ox O2 Del Method O2 Flow Rate 04/14/23 12:50 100 Oxymask 4 04/14/23 13:00 100 Room Air 04/14/23 12:40 98 Oxymask 6 04/14/23 10:59 98 Room Air 04/14/23 07:59 04/14/23 07:02 97 Room Air 04/14/23 03:50 96 Room Air 04/13/23 22:45 04/14/23 00:46 Room Air 04/13/23 22:02 97 Room Air 04/13/23 22:46 97 Room Air 04/13/23 21:36 99 Room Air 04/13/23 18:08 04/13/23 18:00 99 Room Air 04/13/23 18:00 99 Room Air 04/13/23 17:25 99 Room Air Pain Intensity Right Back: Pain Intensity: 10 Transfer of Care Handoff Completed per policy Notes Mental Status: alert / awake / arousable Patient Amnestic to Procedure: Yes Nausea / Vomiting: adequately controlled Pain: adequately controlled Airway Patency, RR, SpO2: stable & adequate BP & HR: stable & adequate Hydration State: stable & adequate Anesthetic Complications: no major complications apparent
--- NOTE | 2023-04-14 13:32 | Fluoroscopy Report ---
FL KUB CLINICAL HISTORY: RIGHT SIDE STENT TECHNIQUE: 3 views were obtained with the C-arm in the OR with the above procedure. Total fluoroscopy time was 5 seconds. Radiation dose was 0.68 mGy. Comparison: None available at the time of this dictation. FINDINGS/IMPRESSION: Intraoperative images were obtained of right-sided stone removal and stent place ment. Please correlate with intraoperative fluoroscopy and operative report. ACT 112: Negative or not required by law. Electronically signed by: Antonio Anglin M.D. 04/14/2023 1:30 PM
--- NOTE | 2023-04-14 15:12 | Gastrointestinal Consultation ---
Date of Consultation April 14, 2023 Assessment & Plan (1) Dark stools: (2) Anemia: Plan dark stools recently and mild anemia in setting of recent kidney stone/ureteral stone attack; no signs of active overt GI bleeding. recs: continue protonix 40 mg BID outpatient EGD to further evaluate her anemia and dark stools rest as per primary team Thank you for for allowing me to participate in the care of this patient History of Present Illness Attending Physician: Dio Adler MD History of Present Illness 72 yo female with hx kidney stones here with a ureteral stone. removed via urology today, feeling better now. GI consulted as she had darker stools last few weeks, no hematochezia or hematemesis that she knows of, denies use of antiplatelets, notes some mild use of advil but not regularly it appears. Hgb noted to be 10.1, normal BUN. CBC and CMP reviewed. Allergies Allergy/AdvReac Type Severity Reaction Status Date / Time No Known Allergies Allergy Unverified 04/13/23 18:18 Home Medications Medication Instructions Recorded Confirmed Type ibuprofen 200 mg tablet 200 mg PO Q6H PRN Pain 04/13/23 04/13/23 History magnesium oxide 250 mg PO DAILY 04/13/23 04/13/23 History ularersdhtuz-vfostalf-prhsdu 1 tab PO DAILY 04/13/23 04/13/23 History tablet (Multivitamin 50 Plus tablet) Patient History Medical History Kidney stones Social History Smoking Status: Never smoker Second Hand Exposure: No; Do You Dip or Chew Tobacco: No; Hx Alcohol Use: No Hx Substance Use: No Preferred Language: Swazi Communication Ability: yi Communication Tools: Other [employer] Required: Yes Beliefs That Will Affect Care: None Current Living Situation: Family Current Living Situation Comment: with daughter Other Information That Helps Us Care for You: No Feels Safe at Home: Yes Safety Concerns: Feels Safe At This Time Assistive Devices: Glasses Review of Systems Constitutional: no fever, no chills and no weight loss Eyes: as per Subjective / HPI Ear, Nose, Mouth, Throat: as per Subjective / HPI Respiratory: no dyspnea and no dyspnea on exertion Cardiovascular: no chest pain and no palpitations Gastrointestinal: as per Subjective / HPI Musculoskeletal: no joint pain and no swelling Integumentary: no rash and no lesions Neurologic: no numbness and no paresthesia Psychiatric: no depression and no anxiety Endocrine: no fatigue Hematologic / Lymphatic: no easy bleeding and no easy bruising Physical Exam Constitutional: WD/WN, vitals as above Eyes: EOM intact bilaterally Neck: normal visual inspection Respiratory: normal respiratory effort, lungs clear to auscultation Cardiovascular: RRR, no murmur, no edema Gastrointestinal (Abdomen): Inspection/Auscultation: abdomen normal to inspection; abdomen not distended Percussion/Palpation: abdomen soft; abdomen nontender and no hepatosplenomegaly Musculoskeletal: Extremities: no cyanosis Gait: normal gait Skin: no rashes, warm and dry Neurologic: moves all extremities Psychiatric: A+Ox3, euthymic affect Results & Data Vital Signs (Past 12 Hours) Vital Signs Temp Pulse Pulse Resp BP BP Pulse Ox 04/14/23 14:15 36.3 C L 76 18 146/74 H 95 04/14/23 14:00 36.6 C 81 20 156/71 H 97 04/14/23 13:25 37.0 C 81 18 150/70 H 97 04/14/23 12:50 73 12 164/83 H 100 04/14/23 13:10 36.4 C L 82 13 166/79 H 98 04/14/23 13:00 89 20 147/74 H 100 04/14/23 12:40 36.4 C L 79 14 150/68 H 98 04/14/23 10:59 36.9 C 79 18 158/71 H 98 04/14/23 07:59 74 04/14/23 07:02 36.8 C 73 18 121/68 97 04/14/23 03:50 37 C 78 18 123/60 96 O2 Del Method O2 Flow Rate 04/14/23 14:15 Room Air 04/14/23 14:00 Room Air 04/14/23 13:25 Room Air 04/14/23 12:50 Oxymask 4 04/14/23 13:10 Room Air 04/14/23 13:00 Room Air 04/14/23 12:40 Oxymask 6 04/14/23 10:59 Room Air 04/14/23 07:59 04/14/23 07:02 Room Air 04/14/23 03:50 Room Air PG Care Time/CCT Total # of Minutes Spent Total Time Spent with Patient: Total time spent is greater than 50% in coordination of care (as documented) at patient's floor/unit and/or counseling patient: Coding Level of Care Code 49690 IN/OBS CONSULT LVL 4,60M Diagnoses Dark stools R19.5 Anemia D64.9
[2023-04-14] MEDS: MoRPHine SULFATE 2 MG/ML CARP IV PRN (15:52)
--- NOTE | 2023-04-14 16:54 | Hospitalist Progress Note ---
Date of Service April 14, 2023 Assessment & Plan (1) Hydronephrosis with urinary obstruction due to renal calculus: Plan: Past medical history of urolithiasis Presented with right-sided back pain CT abdomen pelvis on admission showed right-sided hydronephrosis and hydroureter with obstructive 7 mm right to UVJ stone. Labs reviewed; anemic with hemoglobin around 10. No LEELEE. Patient underwent cystoscopy with ureteroscopy, right ureteral stent placement. Stone removed. String for stent left. Patient to be discharged on low-dose of Cipro or Bactrim which is to be taken 1 hour prior to removal of the stent. Pain control as needed. Upper GI bleed Complaining of dark stool for several months FOBT on examination positive. Hemoglobin around 10. Iron studies reviewed; consistent with iron deficiency anemia. GI evaluated the patient; recommended Protonix twice daily and outpatient follow-up. Time spent evaluating patient, direct bedside care, chart review, placing orders, interpretation of diagnostic studies, discussion with consultants, patient, and family members, as well as other required patient management activities is 60 minutes Please note the above document was generated using voice recognition software. It may contain grammatical, syntax or spelling errors. Any formal questions or concerns about the content, text or information contained within the body of this dictation should be directly addressed to the provider for clarification Admission and Anticipated Discharge Date Admission Date: April 13, 2023 Subjective Patient seen multiple times during the day. Patient reports improvement in the pain after the procedure. She is able to void well without any difficulty. Review of Systems Review of Systems: All systems reviewed & are unremarkable except as noted in Subjective Physical Exam Physical Exam: GENERAL: Comfortable, pleasant, no respiratory distress SKIN: Pallor, warm HEENT: Pale palpebral conjunctivae, no ptosis, dry buccal mucosa NECK : Supple, no tenderness CHEST : CTA, no tenderness HEART : RRR, no obvious murmurs ABDOMEN: Some distention, nontender EXTREMITIES : No LE swelling/tenderness, no other conspicuous deformities noted NEUROLOGIC : Coherent, no facial asymmetry, no other gross focality Results & Data Results & Data Vital Signs (Past 12 Hours) Vital Signs Temp Pulse Pulse Resp BP BP Pulse Ox 04/14/23 16:19 37.1 C 93 H 18 133/73 96 04/14/23 13:15 75 04/14/23 15:07 36.4 C L 79 18 146/75 H 98 04/14/23 14:15 36.3 C L 76 18 146/74 H 95 04/14/23 14:00 36.6 C 81 20 156/71 H 97 04/14/23 13:25 37.0 C 81 18 150/70 H 97 04/14/23 12:50 73 12 164/83 H 100 04/14/23 13:10 36.4 C L 82 13 166/79 H 98 04/14/23 13:00 89 20 147/74 H 100 04/14/23 12:40 36.4 C L 79 14 150/68 H 98 04/14/23 10:59 36.9 C 79 18 158/71 H 98 04/14/23 07:59 74 04/14/23 07:02 36.8 C 73 18 121/68 97 O2 Del Method O2 Flow Rate 04/14/23 16:19 Room Air 04/14/23 13:15 04/14/23 15:07 Room Air 04/14/23 14:15 Room Air 04/14/23 14:00 Room Air 04/14/23 13:25 Room Air 04/14/23 12:50 Oxymask 4 04/14/23 13:10 Room Air 04/14/23 13:00 Room Air 04/14/23 12:40 Oxymask 6 04/14/23 10:59 Room Air 04/14/23 07:59 04/14/23 07:02 Room Air Laboratory Results Laboratory Results WBC 7.36 K/ul (4.8-10.8) 04/14/23 06:13 RBC 4.03 M/uL (4.20-5.40) L 04/14/23 06:13 Hgb 10.1 g/dl (12.0-16.0) L 04/14/23 06:13 Hct 32.3 % (37.0-47.0) L 04/14/23 06:13 MCV 80.1 fL (80.0-100.0) 04/14/23 06:13 MCH 25.1 pg (25.0-34.0) 04/14/23 06:13 MCHC 31.3 g/dL (32.0-36.0) L 04/14/23 06:13 RDW Std Deviation 47.3 fL (36.4-46.3) H 04/14/23 06:13 RDW Coeff of Brenna 16.2 % (11.5-14.5) H 04/14/23 06:13 Plt Count 276 K/uL (130-400) 04/14/23 06:13 MPV 10.4 fL (9.4-12.4) 04/14/23 06:13 Immature Gran % (Auto) 0.3 % 04/14/23 06:13 Neut % (Auto) 72.5 % 04/14/23 06:13 Lymph % (Auto) 18.3 % 04/14/23 06:13 [place] % (Auto) 8.3 % 04/14/23 06:13 Eos % (Auto) 0.3 % 04/14/23 06:13 Baso % (Auto) 0.3 % 04/14/23 06:13 Reticulocyte % (Auto) 1.7 % (0.5-2.0) 04/13/23 21:43 Neut # (Auto) 5.34 K/uL (1.40-6.50) 04/14/23 06:13 Lymph # (Auto) 1.35 K/uL (1.2-3.4) 04/14/23 06:13 [place] # (Auto) 0.61 K/uL (0.11-0.59) H 04/14/23 06:13 Eos # (Auto) 0.02 K/uL (0-0.50) 04/14/23 06:13 Baso # (Auto) 0.02 K/uL (0-0.2) 04/14/23 06:13 Reticulocyte # 0.07 10^6/uL (0.02-0.10) 04/13/23 21:43 Immature Gran # (Auto) 0.02 K/uL (0.01-0.20) 04/14/23 06:13 Sodium 139 mmol/L (136-145) 04/14/23 06:13 Potassium 4.1 mmol/L (3.5-5.1) 04/14/23 06:13 Chloride 107 mmol/L (98-107) 04/14/23 06:13 Carbon Dioxide 27 mmol/L (21-32) 04/14/23 06:13 Anion Gap 5 (3-11) 04/14/23 06:13 BUN 22 mg/dl (6-23) 04/14/23 06:13 Creatinine 0.78 mg/dl (0.6-1.2) 04/14/23 06:13 Est Cr Clr Drug Dosing 61.6 ml/min 04/14/23 06:13 Est GFR ( Amer) 87.4 ml/min 04/14/23 06:13 Est GFR (Non-Af Amer) 75.4 ml/min 04/14/23 06:13 BUN/Creatinine Ratio 28.2 (10-20) H 04/14/23 06:13 Glucose 98 mg/dl (70-99(Fasting)) 04/14/23 06:13 Calcium 8.7 mg/dl (8.6-10.3) 04/14/23 06:13 Magnesium 2.2 mg/dl (1.7-2.4) 04/13/23 17:45 Iron 20 mcg/dl (35-150) L 04/13/23 21:43 Transferrin 341 mg/dl (200-360) 04/13/23 21:43 Ferritin 5.1 ng/ml (8-388) L 04/13/23 21:43 Total Bilirubin 0.2 mg/dl (0.2-1.0) 04/13/23 17:45 Direct Bilirubin 0.0 mg/dl (0-0.2) 04/13/23 17:45 AST 22 U/L (13-39) 04/13/23 17:45 ALT 17 U/L (7-52) 04/13/23 17:45 Alkaline Phosphatase 83 U/L (34-104) 04/13/23 17:45 Total Protein 6.7 gm/dl (6.0-8.3) 04/13/23 17:45 Albumin 4.1 gm/dl (3.4-5.0) 04/13/23 17:45 Lipase 60 U/L (11-82) 04/13/23 17:45 Vitamin B12 529 pg/ml (180-914) 04/13/23 21:43 Folate > 22.30 ng/ml (>5.38) 04/13/23 21:43 Urine Color Yellow 04/13/23 18:31 Urine Appearance Clear (Clear) 04/13/23 18:31 Urine pH 8.0 (4.5-7.5) H 04/13/23 18:31 Ur Specific [place]ass 1.011 (1.000-1.030) 04/13/23 18:31 Urine Protein Negative (Negative) 04/13/23 18:31 Urine Glucose (UA) Negative (Negative) 04/13/23 18:31 Urine Ketones Negative (Negative) 04/13/23 18:31 Urine Blood 2+ (Negative) H 04/13/23 18:31 Urine Nitrite Negative (Negative) 04/13/23 18:31 Urine Bilirubin Negative (Negative) 04/13/23 18:31 Urine Urobilinogen Negative (Negative) 04/13/23 18:31 Ur Leukocyte Esterase Trace (Negative) H 04/13/23 18:31 Urine WBC (Auto) 1-5 /hpf (0-5) 04/13/23 18:31 Urine RBC (Auto) 10-30 /hpf (0-4) H 04/13/23 18:31 U Hyaline Cast (Auto) 0 /lpf (0-5) 04/13/23 18:31 U Epithel Cells (Auto) 10-20 /lpf (0-5) H 04/13/23 18:31 Urine Bacteria (Auto) Negative (Negative) 04/13/23 18:31 SARS-CoV-2, RNA, NAAT NEGATIVE (NEGATIVE) 04/13/23 19:34 Blood Type O Positive 04/13/23 21:43 Antibody Screen NEGATIVE 04/13/23 21:43 Impressions Abdomen/Pelvis CT 04/13/23 17:42 CT abd pelvis wo con CLINICAL HISTORY: R flank RLQ pain hx kidney stones TECHNIQUE: Helical axial images of the abdomen and pelvis were obtained. Automated dose lowering techniques and/or adjustment according to patient size were utilized for this exam. This exam was performed without intravenous contrast. CT DOSE: 749.08 mGy.cm COMPARISON: None available at the time of this dictation. FINDINGS: Lower chest: Bibasilar atelectasis versus scarring is seen. Liver: Unremarkable. No focal lesions are seen. Gallbladder and biliary tree: Patient is status post cholecystectomy. No intra- or extrahepatic biliary ductal dilation. Pancreas: Unremarkable, no focal lesions. Spleen: Unremarkable. Adrenals: Unremarkable. Kidneys and ureters: Right hydronephrosis and hydroureter is seen. A 7 mm right UVJ stone is seen. Bladder: Unremarkable. Reproductive organs: Unremarkable. Bowel: Diverticulosis is seen without evidence of diverticulitis. Lymph nodes Retroperitoneal: Unremarkable. Pelvic: Unremarkable. Mesenteric: Unremarkable. Peritoneum: Normal. Vessels: Atherosclerotic calcifications are seen. Phleboliths are seen in the pelvis. Abdominal wall: Unremarkable. Bones: Degenerative changes in the visualized spine. IMPRESSION: Right hydronephrosis and hydroureter are seen with a obstructive 7 mm right UVJ stone. ACT 112: Negative or not required by law. Electronically signed by: Antonio Anglin M.D. 04/13/2023 6:28 PM Chest X-Ray 04/13/23 19:24 XR chest 1V portable CLINICAL HISTORY: htn, tachy TECHNIQUE: Single frontal radiograph of the chest was obtained. Comparison: None available at the time of this dictation. FINDINGS: No lines and tubes are seen. The cardiomediastinal silhouette is normal. The lungs are clear. No evidence of pleural effusion or pneumothorax. IMPRESSION: No acute chest disease. ACT 112: Negative or not required by law. Electronically signed by: Antonio Anglin M.D. 04/13/2023 8:39 PM Abdomen Fluoroscopy 04/14/23 00:00 FL KUB CLINICAL HISTORY: RIGHT SIDE STENT TECHNIQUE: 3 views were obtained with the C-arm in the OR with the above procedure. Total fluoroscopy time was 5 seconds. Radiation dose was 0.68 mGy. Comparison: None available at the time of this dictation. FINDINGS/IMPRESSION: Intraoperative images were obtained of right-sided stone removal and stent placement. Please correlate with intraoperative fluoroscopy and operative report. ACT 112: Negative or not required by law. Electronically signed by: Antonio Anglin M.D. 04/14/2023 1:30 PM
[2023-04-14] MEDS: ACETAMINOPHEN 325 MG TAB PO PRN ×2 (17:15→21:01)
[2023-04-14] MEDS: PHENAZOPYRIDINE HCL 100 MG TAB PO PRN ×2 (18:03→21:02)
--- NOTE | 2023-04-14 21:27 | Electrocardiogram Report ---
Test Reason : Blood Pressure : / mmHG Vent. Rate : 088 BPM Atrial Rate : 088 BPM P-R Int : 172 ms QRS Dur : 082 ms QT Int : 368 ms P-R-T Axes : 077 -18 032 degrees QTc Int : 445 ms Sinus rhythm with sinus arrhythmia with occasional Premature ventricular complexes Minimal voltage criteria for LVH, may be normal variant ( R in aVL ) Possible Anterior infarct , age undetermined Abnormal ECG No previous ECGs available Confirmed by Juan Pablo Messina ([id number]) on 04/14/2023 9:27:12 PM Referred By: REFERRED SELF Confirmed By:Juan Pablo Messina
[2023-04-15] MEDS: ACETAMINOPHEN 325 MG TAB PO PRN ×2 (06:24→11:43)
[2023-04-15 08:11] LABS: Estimated Average Glucose 123 mg/dl; Hemoglobin A1C 5.9 % (4.5-5.6)
[2023-04-15] MEDS: PHENAZOPYRIDINE HCL 100 MG TAB PO PRN (08:47)
[2023-04-15] MEDS: PANTOprazole 40 MG in SYRINGE 0 ML IV SCH (08:47)
[2023-04-15] MEDS: CEROVITE ADV FORMULA TAB PO SCH (08:47)
[2023-04-15 09:26] LABS: Hematocrit (blood only) 32.2 % (37.0-47.0); Hemoglobin 10.4 g/dl (12.0-16.0); Mean Corpuscular Hemoglobin 25.4 pg (25.0-34.0); Mean Corpuscular Hgb Conc 32.3 g/dL (32.0-36.0); Mean Corpuscular Volume 78.7 fL (80.0-100.0); Mean Platelet Volume 10.5 fL (9.4-12.4); Platelet Count 282 K/uL (130-400); RDW Coefficient of Variation 16.3 % (11.5-14.5); RDW Standard Deviation 46.8 fL (36.4-46.3); Red Blood Count 4.09 M/uL (4.20-5.40); White Blood Count 7.26 K/ul (4.8-10.8)
[2023-04-15 09:45] LABS: BUN Creatinine Ratio 33.3 (10-20); Calcium 8.8 mg/dl (8.6-10.3); Est GFR (Non-African American) 58.7 ml/min; Potassium 3.5 mmol/L (3.5-5.1)
--- NOTE | 2023-04-15 12:03 | Urology Progress Note ---
Date of Service April 15, 2023 Assessment & Plan (1) Hydronephrosis with urinary obstruction due to renal calculus: Plan POD #1 s/p Cystoscopy, Ureteroscopy, Right Ureteral Stent Placement, Stone basket extraction of Stone Overall doing ok following her procedure yesterday. Afebrile and hemodynamically stable. Labs show no leukocytosis and normal renal function. Voiding without issue. Tethered stent removed at bedside without difficulty. Patient tolerated well. Will give one dose of PO Cipro following stent removal. Nursing aware. OK for discharge from perspective. Expected clinical course reviewed. Will arrange outpatient follow-up with our service. Urology will sign-off. Please contact us with any further questions, concerns, or changes in patient status. Admission and Anticipated Discharge Date Admission Date: April 13, 2023 Subjective Patient examined at bedside. Primarily Niuean speaking. +minimal Slovenian. Daughter is at bedside. No acute distress. No fevers. VSS. Voiding without issue. Tolerating the stent with minimal bother. Review of Systems Constitutional: as per Subjective / HPI Genitourinary: as per Subjective / HPI Physical Exam Constitutional: well developed and well nourished; no acute distress Respiratory: normal respiratory effort; no respiratory distress and no labored breathing Skin: No visible rashes or lesions to exposed skin areas Neurologic: awake Psychiatric: A+Ox3, euthymic affect Results & Data Vital Signs (Past 12 Hours) Vital Signs Temp Pulse Pulse Resp BP Pulse Ox O2 Del Method 04/15/23 08:00 73 04/15/23 11:08 36.8 C 77 18 134/72 97 Room Air 04/15/23 07:48 36.9 C 76 19 138/67 99 Room Air 04/15/23 04:15 36.9 C 69 18 121/59 L 95 Room Air 04/15/23 03:00 76 PG Care Time/CCT Total # of Minutes Spent Total Time Spent with Patient: Total time spent is greater than 50% in coordination of care (as documented) at patient's floor/unit and/or counseling patient: Coding Level of Care Code 19686 SUB INP/OBS CARE 2/35MIN Diagnoses Hydronephrosis with urinary obstruction due to renal calculus N13.2
[2023-04-15] MEDS ORDERED: CIPROFLOXACIN 500 MG TAB PO ONE (12:30)
--- NOTE | 2023-04-15 16:19 | Discharge Summary ---
Date of Service April 15, 2023 Admission HPI Per Admitting Provider History obtained from patient, family, and records. Limited history from patient secondary to language barrier. Medical history significant for urolithiasis. Patient is a [place] of [facility] who just relocated to [place] as a permanent resident to stay with her daughter 2 months ago. Move delayed by COVID-19 pandemic. 1 day history of right-sided back pain with nausea, emesis symptoms reminiscent of kidney stone attack. No hematuria, no fever, no chills. Patient denies chest pain, SOB. Patient also gives history of intermittent dark stools for the last few weeks. Denies inordinate OTC NSAID intake. Denies weight loss. Patient brought to the ER by daughter. Medical History as above Surgical History : Nasal septum surgery, urologic procedures, cholecystectomy, appendectomy Family History : Kidney stones, stomach cancer Personal/Social history : Non-smoker, no EtOH intake, lives with daughter Admission Exam Per Admitting Provider GENERAL: Comfortable, pleasant, no respiratory distress SKIN: Pallor, warm HEENT: Pale palpebral conjunctivae, no ptosis, dry buccal mucosa NECK : Supple, no tenderness CHEST : CTA, no tenderness HEART : RRR, no obvious murmurs ABDOMEN: Some distention, nontender RECTAL : Intact sphincter, dark brown stool (FOBT positive) EXTREMITIES : No LE swelling/tenderness, no other conspicuous deformities noted NEUROLOGIC : Coherent, no facial asymmetry, no other gross focality Principal Diagnosis Hydronephrosis with urinary obstruction due to renal calculus s/p cystoscopy with ureteroscopy, right ureteral stent placement. Upper GI bleed Discharge Exam GENERAL: Comfortable, pleasant, no respiratory distress SKIN: Pallor, warm HEENT: Pale palpebral conjunctivae, no ptosis, dry buccal mucosa NECK : Supple, no tenderness CHEST : CTA, no tenderness HEART : RRR, no obvious murmurs ABDOMEN: Some distention, nontender EXTREMITIES : No LE swelling/tenderness, no other conspicuous deformities noted NEUROLOGIC : Coherent, no facial asymmetry, no other gross focality Discharge Data Allergies Allergy/AdvReac Type Severity Reaction Status Date / Time No Known Allergies Allergy Unverified 04/13/23 18:18 Consultations 04/13/23 19:17 ED Decision to Admit Stat 04/13/23 22:30 Consult Gastroenterology Routine Consult Urology Routine Procedures Performed Operation Date: 04/14/23 12:00 Actual Procedures p Cystoscopy, Ureteroscopy, Right Ureteral Stent Placement, Stone basket extraction of Stone(Right) - Zachery Reyes MD Ordered Studies 04/13/23 17:42 CT abd pelvis wo con Stat 04/14/23 FL KUB Routine Hospital Course (1) Hydronephrosis with urinary obstruction due to renal calculus: Past medical history of urolithiasis Presented with right-sided back pain CT abdomen pelvis on admission showed right-sided hydronephrosis and hydroureter with obstructive 7 mm right to UVJ stone. Labs reviewed; anemic with hemoglobin around 10. No LEELEE. Patient underwent cystoscopy with ureteroscopy, right ureteral stent placement. Stone removed. String removed following day. Upper GI bleed Complaining of dark stool for several months FOBT on examination positive. Hemoglobin around 10. Iron studies reviewed; consistent with iron deficiency anemia. GI evaluated the patient; recommended Protonix twice daily and outpatient follow-up. Please note the above document was generated using voice recognition software. It may contain grammatical, syntax or spelling errors. Any formal questions or concerns about the content, text or information contained within the body of this dictation should be directly addressed to the provider for clarification Total Time Total Time Spent Total Time Spent (In Minutes): 45 Total Time Includes: Examination of the Patient, Discharge Planning, Medication Reconciliation, Communication With Other Providers and Other Discharge Plan Discharge Items Patient Disposition: Home - Self-Care Reason For Visit: UGIB, OBS UROPATHY Discharge Diagnosis: Hydronephrosis with urinary obstruction due to renal calculus s/p cystoscopy with ureteroscopy, right ureteral stent placement. Upper GI bleed Activity: Resume your previous activity Non-emergency contact: Primary Care Provider Call non-emergency contact if: you have any medication questions and your symptoms worsen Follow-up/Referrals: Genia Dan DO [Outside Practitioners] - (Date & Time 04/22/2023 5:00 PM Provider Genia Dan DO Department Family Practice [facility] ) Diet: Regular Addtl Attending Provider Instructions: You were admitted to the hospital with right-sided kidney stone which was removed. Please follow the instructions below regarding the removal of the stent. There is concern for anemia due to bleeding from the GI tract. You are prescribed Protonix to be taken twice daily till you see a GI doctor. Please stop taking ibuprofen. For the pain associated with the stent, you can take Tylenol as needed. Also, you can take Pyridium as needed for 3 times a day for up to 5 doses. You are also prescribed tramadol to be taken if you have severe pain. An appointment will be set up for you with a primary care doctor for sometime next week. [employer]tl [employer] Provider Instructions: Urology instructions; The surgery you had was ureteroscopy with stone removal and stent placement. The stone was identified and removed without any issue. You have a stent in place. This should stay in for the next 1 to 2 days. Please take all medications as prescribed and keep all follow-ups as scheduled. Please call our office at [phone] with any questions, concerns or need to reschedule appointments for any reason. We are happy to assist you. Medications: please resume your normal medications as previously prescribed. For pain, it is ok to take tylenol alternating with ibuprofen. You can also take AZO, which can be purchased [id number] at the drugstore. Be aware this turns your urine a bright orange color. If you are prescribed a stronger medication you can take this according to instructions on the label. What to expect after your ureteroscopy and stone removal procedure: You may notice small pieces of stone or stone dust/gravel in your urine over the next few days. Drink plenty of liquids to help flush your system. You may notice some blood in your urine. As long as you are able to urinate, this is ok. When to call [facility] at [phone]: Fever of 101F or higher Heavy bleeding Pain that is not controlled with medicine Uncontrolled vomiting Problems urinating or inability to urinate Pending Studies at Discharge: No Stand-Alone Forms: [employer], Smoking Cessation Medications and DC Order Prescriptions: New acetaminophen 325 mg Tablet 650 mg PO Q4H PRN (Reason: fever or pain) Qty: 30 0RF tramadol 50 mg Tablet 25 - 50 mg PO Q4H PRN (Reason: pain) Qty: 6 0RF phenazopyridine [Pyridium] 100 mg Tablet 100 mg PO TID PRN (Reason: pain) Qty: 5 0RF pantoprazole [Protonix] [address] for susp in packet 40 mg PO BID 60 Days Qty: 120 0RF Continued magnesium oxide 250 mg magnesium Tablet 250 mg PO DAILY Multivitamin 50 Plus Tablet 1 tab PO DAILY Discontinued ibuprofen 200 mg Tablet 200 mg PO Q6H PRN (Reason: Pain) Discharge Orders: Discharge Order (Routine); Ordered 04/15/23 Ordered By: Dio Adler Admission Data Admit Date/Time: 04/13/23 20:40 Attending Provider: Dio Adler Admit Provider: Brando Guzmán Primary Care Provider: PCP,NO Other Providers: Brando Guzmán ; Brian Dan ; Ge Stratton ; Sabrina Hilliard ; Aide Raman ; Sierra White ; Tari Leo ; Ryder Olivares ; Stewart Gonzalez ; Laurie Sinclair ; Marely Hooker ; Phu Evans ; Layne Stafford ; Evita Mcrae ; Emily Whaley ; Diamond Canales ; Farhana Arnold ; Manolo Lancaster ; Brent Fraire ; Natalie Riley ; Iqra Sadler Jr ; Juan Pablo Parikh ; Devang Jordan ; Kwaku Waggoner ; Genai Ramon ; Kilo Ignacio ; Annalise Gamez Melissa A. ; Zachery Reyes ; Elizabeth Conte ; Sherly Mejia ; Sy Maharaj ; Hector Wan Other Interventions: Discharge Summary Assessment (RN) Last Done: 04/15/23 12:51
== END 2023-04-15 13:22 | disposition home or self-care (01) | DRG 660 ==
LOC: ED 17:22 → 2W 20:40